=== PATIENT | male | born 1965 | race Caucasian/White ===

== ENCOUNTER 2019-06-13 17:47 | Emergency (ER) | payer SELFPAY ==
[~2019-06-13] VITALS: Ht 177.8 cm; Wt 88.8 kg
[2019-06-13 17:51] VITALS: BP 131/61; PULSE 68; RESP 16; Ht 177.8 cm; Wt 88.8 kg
[2019-06-13] MEDS ORDERED: CPR3OO3.5 LEFT EYE (18:58)
--- NOTE | 2019-06-13 22:02 | ERD ---
ER Documentation Chief Complaint Chief Complaint lt eye pain since wednesday HPI 53-year-old male with no significant past medical history presents to the emergency department complaining of redness and discharge to his left eye intimately for the past 2 days. He started amoxicillin and eyedrops which he cannot recall the name of approximately 2 days ago after going to an urgent care. He denies any visual acuity deficits. He denies any diplopia, periorbital swelling or pain. He denies any fevers. Symptoms are mild and intermittent. No other symptoms reported currently. ROS All systems reviewed and are negative except as per history of present illness. Medications Home Meds Active Scripts Ciprofloxacin Opht* (Ciloxan*) 0.3%-3.5 Opht Oint, 1 APPLIC LEFT EYE TID, #1 BOTTLE Prov:ALISA PARHAM PA-C 06/13/19 PMhx/Soc Medical and Surgical Hx: pt denies Medical Hx, pt denies Surgical Hx Hx Alcohol Use: No Hx Substance Use: No Hx Tobacco Use: No Smoking Status: Never smoker FmHx Family History: No diabetes Physical Exam Vitals Vital Signs Date Temp Pulse Resp B/P (MAP) Pulse Ox O2 O2 Flow FiO2 Time Delivery Rate 06/13/19 98.2 68 16 131/61 99 17:51 (84) Physical Exam Const: No acute distress Head: Atraumatic Eyes: Left conjunctival injection with greenish discharge noted. There is no periorbital edema or tenderness of the orbits bilaterally. Extraocular movements intact bilaterally. ENT: Normal External Ears, Nose and Mouth. Neck: Full range of motion. No meningismus. Resp: No respiratory distress. Skin: No petechiae or rashes Ext: No cyanosis, or edema Neur: Awake and alert Psych: Normal Mood and Affect Procedures/MDM 53-year-old male presents to the emergency department with signs and symptoms most consistent with conjunctivitis, likely bacterial etiology. Patient is appropriate for further outpatient management with a prescription for ciprofloxacin ophthalmic. Ophthalmologic Assessment: Patient's ocular symptoms have stabilized while they have been evaluated in the department and are appropriate for outpatient work up. No evidence of ruptured globe, retinal detachment, acute angle closure glaucoma, or deep space infection. Plan for 24 hour ophthalmologic follow up. No evidence of life-threatening pathology at time of discharge. Pt/family in agreement with discharge plan/diagnosis. Pt/family advised to return immediately with any new or worsening symptoms. Follow-up with primary care physician within the next 1-2 days. Departure Diagnosis: Primary Impression: Conjunctivitis Condition: Fair Patient Instructions: Conjunctivitis Caused by Infection [facility] Usted se staton hecho un examen mdico de control que le indica que no est en susan condicin que requiera tratamiento urgente en el Departamento de Emergencia. Un estudio ms profundo y el tratamiento de goins condicin pueden esperar sin ningn riesgo hasta que usted sea atendida/o en el consultorio de goins mdico o susan clnica. Es responsabilidad suya arreglar susan yolande para el seguimiento del priya. MANEJO DE CONDICIONES NO URGENTES EN EL FUTURO 1) Si usted tiene un mdico de atencin primaria: Usted debera llamar a goins mdico de atencin primaria antes de venir al departamento de emergencia. Despus de las horas de consultorio, goins doctor o goins asociado/a est disponible por telfono. El mdico o enfermero de ike en el servicio telefnico puede asesorarle por sid medio para atender el problema, o priya contrario se puede programar susan yolande. 2) Si usted no tiene un mdico de atencin primaria: Llame al mdico o clnica de referencia que aparece abajo kasia las horas de consultorio para hacer susan yolande para que le vean. CLINICAS: [facility] [phone] [facility] [phone] [facility] [phone] [address] [facility]. [facility] [phone] [facility]. [facility] [phone] [facility] [phone] [address] [facility] [place] [facility] Hours: Wed - Wed 9:00 AM - 5:00 PM Additional Instructions: Specialist:Usted tiene susan condicin mdica que requiere que [place] a un especialista dentro de los prximos 1-2 childs.POR FAVOR,CON GOINS SEGUIMIENTO DE PRIMARIA PHSICIAN refferal. SI USTED NO TIENE UN MDICO GENERAL Y / O USTED NO PUEDE PAGAR edilma a un mdico,los siguientes [place] RECURSOS sido suministrado a usted. ES GOINS RESPONSABILIDAD PARA SER VISTOS POR EL ESPECIALISTA: OPTHALMOLOGY ALISA PARHAM PA-C Jun 13, 2019 22:02
== END 2019-06-13 19:08 | disposition home or self-care (01) ==
LOC: FTE 17:47
DX: H10.022 Other mucopurulent conjunctivitis, left eye (principal)
CPT/HCPCS: 99283